=== PATIENT | female | born 1995 | race Caucasian/White ===

== ENCOUNTER 2018-11-17 16:16 | Emergency (ER) | payer MEDICAID ==
[~2018-11-17] VITALS: Ht 167.6 cm; Wt 85.0 kg
[~2018-11-17 16:16] MED LIST: ALBU8.5H8 IH; BENZ-16 PO
[2018-11-17 16:17] VITALS: BP 134/71
== END 2018-11-17 16:35 | disposition home or self-care (01) ==
LOC: ER 16:17
DX: S60.450A Superficial foreign body of right index finger, initial encounter (principal); J45.909 Unspecified asthma, uncomplicated; Z79.899 Other long term (current) drug therapy; X58.XXXA Exposure to other specified factors, initial encounter; Y93.89 Activity, other specified; Y92.89 Other specified places as the place of occurrence of the external cause; Y99.9 Unspecified external cause status
CPT/HCPCS: 12001; 99283; 99284